=== PATIENT | female | born 1995 | race Caucasian/White ===

== ENCOUNTER 2017-06-20 05:43 | Outpatient (CLI) | payer MEDICAID ==
[2017-06-20 06:48] LABS: ADD UMIC YES; UR ASCORBIC ACID NEGATIVE (NEGATIVE); UR BACTERIA FEW /HPF (NONE SEEN); UR BILIRUBIN (Dip) NEGATIVE (NEGATIVE); UR BLOOD (Dip) NEGATIVE (NEGATIVE); UR CLARITY SLIGHTLY CLOUDY (CLEAR); UR COLOR YELLOW (YELLOW); UR GLUCOSE (Dip) NEGATIVE (NEGATIVE); UR KETONES (Dip) NEGATIVE (NEGATIVE); UR LEUKOCYTE ESTERASE (Dip) 1+ Leu/ul (NEGATIVE); UR NITRITE (Dip) NEGATIVE (NEGATIVE); UR RBC 1 /HPF (0-5); UR SPECIFIC GRAVITY (Dip) 1.017 (1.003-1.030); UR SQUAMOUS EPITHELIAL CELL FEW /HPF (FEW); UR TOTAL PROTEIN (Dip) NEGATIVE (NEGATIVE); UR UROBILINOGEN (Dip) NEGATIVE (NEGATIVE); UR WBC 4 /HPF (0-5)
[2017-06-20] MEDS: TERBUTALINE 1 MG/ML INJ SC (07:05)
[2017-06-20] MEDS: LACTATED RINGER'S 1,000 ML IV ×3 (07:23→10:00)
[2017-06-20 07:38] LABS: ADD MAN DIFF? NO
[2017-06-20 07:40] LABS: WHITE BLOOD COUNT 14.8 10^3/ul (4.8-10.8)
[2017-06-20 07:40] LABS: BASOPHILS % 0.3 % (0.0-2.0); EOSINOPHILS # 0.3 10^3/ul (0.0-0.5); EOSINOPHILS % 2.3 % (0.0-7.0); HEMATOCRIT 40.9 % (37.0-47.0); HEMOGLOBIN 13.6 g/dl (12.0-16.0); LYMPHOCYTES # 2.8 10^3/ul (0.8-2.9); LYMPHOCYTES % 18.9 % (15.0-51.0); MEAN CORPUSCULAR HEMOGLOBIN 30.2 pg (29.0-33.0); MEAN CORPUSCULAR HGB CONC 33.3 g/dl (32.0-37.0); MEAN CORPUSCULAR VOLUME 90.7 fl (82.0-101.0); MEAN PLATELET VOLUME 10.8 fl (7.4-10.4); MONOCYTE # 0.8 10^3/ul (0.3-0.9); MONOCYTES % 5.1 % (0.0-11.0); NEUTROPHIL # 10.8 10^3/ul (1.6-7.5); PLATELET COUNT 267 10^3/UL (140-415); RED BLOOD COUNT 4.51 10^6/ul (4.20-5.40)
[2017-06-20] MEDS: NIFEdipine (XL) 60 MG TAB PO (09:57)
[2017-06-20] MEDS: GENTAMICIN 120 MG/NS (PMX) 100 ML IVPB (09:59)
[2017-06-20] MEDS: BETAMET NA PHOS/AC(6 MG/ML) 5ML INJ IM (14:18)
== END 2017-06-20 15:00 | disposition home or self-care (01) ==
LOC: OBT 05:43 → L-D 05:45 → OBT 15:00
DX: O62.9 Abnormality of forces of labor, unspecified (principal); Z3A.30 30 weeks gestation of pregnancy
CPT/HCPCS: 36415; 76815; 76817; 81001; 85025; 96360; 96365; 96372

== ENCOUNTER 2017-06-21 13:09 | Outpatient (CLI) | payer MEDICAID ==
[2017-06-21] MEDS: BETAMET NA PHOS/AC(6 MG/ML) 5ML INJ IM (14:10)
== END 2017-06-21 14:28 | disposition home or self-care (01) ==
LOC: OBT 13:09 → L-D 13:09 → OBT 14:28
DX: O60.03 Preterm labor without delivery, third trimester (principal); Z3A.30 30 weeks gestation of pregnancy
CPT/HCPCS: 96372

== ENCOUNTER 2017-08-23 | Inpatient (IN) | payer MEDICAID ==
[2017-08-23] MEDS ORDERED: ACETAMINOPHEN/CODEINE #3 TAB PO (05:30)
[2017-08-23] MEDS ORDERED: LIDOCAINE 1% (MPF) 30 ML INJ INJ (05:30)
[2017-08-23] MEDS ORDERED: IBUPROFEN 600 MG TAB PO (05:30)
[2017-08-23] MEDS ORDERED: BUTORPHANOL 2 MG INJ IV (05:30)
[2017-08-23] MEDS ORDERED: OXYTOCIN 30 UNITS/LR 500 ML IV ×2 (05:30→11:30)
[2017-08-23] MEDS ORDERED: METHYLERGONOVINE 0.2 MG INJ IM ×2 (05:30→11:30)
[2017-08-23] MEDS ORDERED: CARBOPROST 250 MCG INJ IM ×2 (05:30→11:30)
[2017-08-23] MEDS ORDERED: MISOPROSTOL 200 MCG TAB PR ×2 (05:30→11:30)
[2017-08-23] MEDS ORDERED: BUTORPHANOL 1 MG INJ IV (05:30)
[2017-08-23] MEDS: AMPICILLIN 2 GM/NS (PMX) 100 ML IV (05:56)
[2017-08-23] MEDS: LACTATED RINGER'S 1,000 ML IV* (05:56)
[2017-08-23 06:22] LABS: ADD MAN DIFF? NO
[2017-08-23 06:33] LABS: BASOPHILS % 0.2 % (0.0-2.0); EOSINOPHILS # 0.1 10^3/ul (0.0-0.5); EOSINOPHILS % 0.4 % (0.0-7.0); HEMATOCRIT 39.3 % (37.0-47.0); HEMOGLOBIN 13.3 g/dl (12.0-16.0); LYMPHOCYTES # 2.1 10^3/ul (0.8-2.9); LYMPHOCYTES % 15.8 % (15.0-51.0); MEAN CORPUSCULAR HGB CONC 33.8 g/dl (32.0-37.0); MEAN CORPUSCULAR VOLUME 88.7 fl (82.0-101.0); MEAN PLATELET VOLUME 11.9 fl (7.4-10.4); MONOCYTE # 0.9 10^3/ul (0.3-0.9); MONOCYTES % 6.4 % (0.0-11.0); NEUTROPHIL # 10.3 10^3/ul (1.6-7.5); NEUTROPHILS % 76.7 % (39.0-77.0); PLATELET COUNT 232 10^3/UL (140-415); RED BLOOD COUNT 4.43 10^6/ul (4.20-5.40); RED CELL DISTRIBUTION WIDTH 13.2 % (11.5-14.5)
[2017-08-23 06:33] LABS: WHITE BLOOD COUNT 13.4 10^3/ul (4.8-10.8)
[2017-08-23 06:43] LABS: INR 0.82; PROTIME 11.4 Sec (11.9-14.9); PT RATIO 0.9
[2017-08-23] MEDS ORDERED: CLINDAMYCIN 900 MG/D5W (PMX) 50 ML IVPB (09:00)
[2017-08-23] MEDS ORDERED: AMPICILLIN 1 GM/NS (PMX) 50 ML IV (09:30)
[2017-08-23] MEDS: OXYTOCIN 30 UNITS/LR 500 ML IV ×3 (09:37→12:52)
[2017-08-23] MEDS ORDERED: ZOLPIDEM 5 MG TAB PO (11:30)
[2017-08-23] MEDS ORDERED: NACL 0.9% 3 ML SYG IV (11:30)
[2017-08-23] MEDS ORDERED: BENZOCAINE 20% 56 ML SPRAY TOP (11:30)
[2017-08-23] MEDS ORDERED: WITCH HAZEL/GLYCERIN PAD PR (11:30)
[2017-08-23] MEDS ORDERED: OXYCODONE/ASPIRIN (4.88/325) TAB PO (11:30)
[2017-08-23] MEDS ORDERED: SENNA/DOCUSATE NA (8.6MG/50MG) TAB PO (11:30)
[2017-08-23] MEDS: IBUPROFEN 600 MG TAB PO ×2 (12:53→18:34)
[2017-08-23] MEDS: LANOLIN 7 GM TUBE TOP (12:53)
[2017-08-23 18:57] LABS: RAPID PLASMA REAGIN NONREACTIVE (NR)
[2017-08-23] MEDS: SENNA/DOCUSATE NA (8.6MG/50MG) TAB PO (22:55)
[2017-08-24] MEDS: IBUPROFEN 600 MG TAB PO ×5 (01:09→23:51)
[2017-08-24] MEDS: SENNA/DOCUSATE NA (8.6MG/50MG) TAB PO ×2 (08:51→21:05)
[2017-08-24 11:55] LABS: ADD MAN DIFF? NO
[2017-08-24 12:15] LABS: WHITE BLOOD COUNT 11.5 10^3/ul (4.8-10.8)
[2017-08-24 12:15] LABS: BASOPHILS % 0.3 % (0.0-2.0); EOSINOPHILS # 0.2 10^3/ul (0.0-0.5); EOSINOPHILS % 1.7 % (0.0-7.0); HEMATOCRIT 40.8 % (37.0-47.0); HEMOGLOBIN 13.2 g/dl (12.0-16.0); LYMPHOCYTES # 2.6 10^3/ul (0.8-2.9); LYMPHOCYTES % 22.5 % (15.0-51.0); MEAN CORPUSCULAR HEMOGLOBIN 29.6 pg (29.0-33.0); MEAN CORPUSCULAR HGB CONC 32.4 g/dl (32.0-37.0); MEAN CORPUSCULAR VOLUME 91.5 fl (82.0-101.0); MEAN PLATELET VOLUME 11.5 fl (7.4-10.4); MONOCYTE # 0.7 10^3/ul (0.3-0.9); MONOCYTES % 5.9 % (0.0-11.0); NEUTROPHIL # 7.9 10^3/ul (1.6-7.5); NEUTROPHILS % 69.1 % (39.0-77.0); PLATELET COUNT 256 10^3/UL (140-415); RED BLOOD COUNT 4.46 10^6/ul (4.20-5.40); RED CELL DISTRIBUTION WIDTH 13.9 % (11.5-14.5)
[2017-08-25] MEDS: IBUPROFEN 600 MG TAB PO ×2 (05:44→12:37)
[2017-08-25] MEDS: SENNA/DOCUSATE NA (8.6MG/50MG) TAB PO (08:52)
[2017-08-25] MEDS: DIPHTH/TET/ACEL PERTUSS (ADULT) 0.5 ML VIAL IM* (09:22)
== END 2017-08-25 15:40 | disposition home or self-care (01) | DRG 775 ==
LOC: OBT → L-D → OBT 04:37 → L-D 04:37 → PP1 11:17
PROVIDERS: Obstetrics & Gynecology
PROC: 10E0XZZ Delivery of Products of Conception, External Approach (ICD-10-PCS; principal; 2017-08-23)
PROC: 4A1HXCZ Monitoring of Products of Conception, Cardiac Rate, External Approach (ICD-10-PCS; 2017-08-23)
DX: O99.824 Streptococcus B carrier state complicating childbirth (principal); Z3A.39 39 weeks gestation of pregnancy; Z37.0 Single live birth
CPT/HCPCS: 76815; 85025; 85610; 85730; 86592; 86850; 86900; 86901